=== PATIENT | female | born 1975 | race Caucasian/White ===

== ENCOUNTER → 2017-09-08 | Outpatient (CLI) | payer BC, OTHER ==
[~2017-09-08] MED LIST: NOHOMEMEDICATIONS
== END ==
LOC: RAD 02:00
DX: Z12.31 Encounter for screening mammogram for malignant neoplasm of breast (principal)

== ENCOUNTER → 2017-09-15 | Outpatient (CLI) | payer BC, OTHER | LOC: ULTRA 09:59 | DX: N60.02 Solitary cyst of left breast (principal); N60.01 Solitary cyst of right breast ==